=== PATIENT | female | born 1990 | race Caucasian/White ===

== ENCOUNTER → 2017-09-20 | Day surgery (SDC) | payer OTHER ==
[~2017-09-20] MED LIST: FEOSOL1 TAB PO; PERCOCET 5-3251 EACH PO
== END | disposition home or self-care (01) ==
LOC: ADM 09-17 15:00 → CIR.AMB 07:19
DX: Z30.2 Encounter for sterilization (principal)

== ENCOUNTER 2018-05-02 15:32 | Emergency (ER) | payer OTHER ==
[~2018-05-02] VITALS: Ht 165.1 cm; Wt 86.2 kg
== END 2018-05-02 19:41 | disposition home or self-care (01) ==
LOC: ER 15:32
DX: R10.2 Pelvic and perineal pain (principal)

== ENCOUNTER 2020-05-11 06:54 | Emergency (ER) | payer OTHER ==
[~2020-05-11] VITALS: Ht 165.1 cm; Wt 83.9 kg
== END 2020-05-11 14:07 | disposition home or self-care (01) ==
LOC: ER 06:54
DX: B34.9 Viral infection, unspecified (principal); N39.0 Urinary tract infection, site not specified; Z20.828 Contact with and (suspected) exposure to other viral communicable diseases